=== PATIENT | female | born 1985 | race American Indian/Alaskan Native ===

== ENCOUNTER 2019-03-23 22:03 | Emergency (ER) | payer OTHER ==
[~2019-03-23 22:03] MED LIST: ATI1T PO; CYCL-1 PO; HYDR-4383 PO; KETO10TA2 PO; PANT-47 PO
--- NOTE | 2019-03-23 22:50 | NUR ---
NO RESPONSE FROOM LOBBY AFTER ATTEMPTING TO TRIAGE 3 TIMES, CALL PLACED TO NUMBER ON FILE. sPOKE TO . HE REPORTS THAT HER SYMPTOMS IMPROVED WHILE IN THE LOBBY AND THEY DECIDED TO NOT BE SEEN. DR. HINTON INFORMED.
== END 2019-03-23 23:03 | disposition left against medical advice (07) ==
LOC: ER 22:04
DX: T78.40XA Allergy, unspecified, initial encounter (principal); Z53.21 Procedure and treatment not carried out due to patient leaving prior to being seen by health care provider; Y92.89 Other specified places as the place of occurrence of the external cause

== ENCOUNTER 2023-10-30 17:16 | Emergency (ER) | payer OTHER, BC ==
[~2023-10-30] VITALS: Ht 149.9 cm; Wt 69.7 kg
[2023-10-30 18:30] VITALS: BP 141/63; PULSE 55; RESP 18; TEMP 97.3; O2SAT 100
[2023-10-30] MEDS ORDERED: NAPR-56 PO (18:39)
[2023-10-30] MEDS ORDERED: CYCL-1 PO (18:39)
== END 2023-10-30 18:55 | disposition home or self-care (01) ==
LOC: ER 17:16
DX: M54.2 Cervicalgia (principal); J45.909 Unspecified asthma, uncomplicated; Z88.6 Allergy status to analgesic agent; Z88.8 Allergy status to other drugs, medicaments and biological substances; Z79.899 Other long term (current) drug therapy; V89.2XXA Person injured in unspecified motor-vehicle accident, traffic, initial encounter; Y93.89 Activity, other specified; Y92.89 Other specified places as the place of occurrence of the external cause; Y99.8 Other external cause status
CPT/HCPCS: 99283